=== PATIENT | male | born 1985 | race Caucasian/White ===

== ENCOUNTER 2017-01-02 16:15 | Emergency (ER) | payer OTHER ==
[~2017-01-02] VITALS: Ht 182.9 cm; Wt 109.0 kg
[~2017-01-02 16:15] MED LIST: ALPRAZOLAM0.25 M2 PO; AMERICAINE TP; ANUSOL-HC25 MG RC; ARTIFICIAL TEAR15 M3 OP; ATIVAN0.5 MG PO; ATIVAN1 MG PO; ATIVAN2 M1 PO; BENTYL10 M1 PO; BUPROPION HCL100 MG PO; CIPRO500 MG/5 M PO; COLACE-T100 MG PO; COLACE100 M1 PO; COLACE100 MG PO; COLACE50 MG PO; CYMBALTA60 M1 PO; DIAZEPAM5 M PO; EFFEXOR XR75 M1 PO; FLAGYL500 MG PO; H PO; HYDROCODON-ACE1 EAC7 PO; IBUPROFEN800 MG PO; LEVAQUIN500 MG PO; LIDODERM700 MG TP; LINZESS290 MC1 PO; METOPROLOL SUCC25 M1 PO; MIRALAX17 G2 PO; MIRALAX17 GM PO; MOTRIN600 MG PO; NIFEDIPINE10 M3 PO; NORCO 10/3251 TA1 PO; NORCO 5-325 TA1 EACH PO; NORCO 5/325 TAB1 TAB PO; NORCO 5/3251 TAB PO; NORCO 7.5/3251 TAB PO; NORVASC5 M2 PO; OXYCODON-ACETA1 EAC1 PO; OXYCODONE/APAP PO; PAIN RELIEVING28 GM TP; PERCOCET 5-3251 EACH PO; PERCOCET 5/3251 TAB PO; PERCOCET 7.5-31 EACH PO; PHENERGAN25 MG PO; PRISTIQ ER50 MG PO; PRISTIQ50 MG PO; PROTONIX40 M2 PO; PSYLLIUM PO; ROXICODONE5 M1 PO; SENOKOT-S TABLE1 TAB PO; TRAMADOL HCL50 MG PO; ULTRAM ER100 M1 PO; VALIUM5 M1 PO; WELLBUTRIN SR100 M1 PO; WELLBUTRIN SR200 M2 PO; ZOFRAN4 M1 PO; ZOFRAN4 M2 PO; ZOFRAN4 MG PO; ZOLOFT100 M1 PO; ZOLOFT100 MG PO; ZOLOFT50 MG PO; [UNRECOGNIZED DRUG - OTHER] TP
[2017-01-02] MEDS ORDERED: AMITRIPTYLINE H25 M1 PO (16:31)
[2017-01-02] MEDS ORDERED: EFFEXOR XR150 M1 PO (16:31)
[2017-01-02] MEDS ORDERED: AMBIEN10 M1 PO (16:31)
[2017-01-02] MEDS ORDERED: XANAX1 M1 PO (16:32)
[2017-01-02] MEDS ORDERED: WELLBUTRIN SR100 M2 PO (16:32)
[2017-01-02] MEDS ORDERED: TOPAMAX100 M2 PO (16:32)
[2017-01-02] MEDS ORDERED: NORCO 5-325 TA1 EACH PO (16:35)
[2017-01-02] MEDS ORDERED: IBUPROFEN600 M1 PO (16:38)
[2017-01-02] MEDS ORDERED: ULTRAM50 M1 PO (16:40)
[2017-01-02] MEDS ORDERED: KEFLEX500 M4 PO (16:41)
[2017-01-02 16:43] LABS: BASO % 0.1 % (0-2); EOS % 3.6 % (0-7); EOSINOPHIL ABSOLUTE COUNT 0.2 tho/cmm (0.0-0.7); HCT-HEMATOCRIT 42.1 % (36.0-53.5); HGB-HEMOGLOBIN 14.9 gm/dl (13.5-17.0); IMMATURE GRANULOCYTES ABSOLUTE 0.01 tho/cmm (0-0.03); IMMATURE GRANULOCYTES PERCENT 0.1 % (0-0.3); LYMPH % 43.3 % (20-45); LYMPH ABSOLUTE COUNT 2.9 tho/cmm (0.8-4.5); MCH (MEAN CORPUSCULAR HGB) 29.2 pg (28.0-32.0); MCHC MEAN CORPUSCULAR HGB CONC 35.4 % (32.0-36.0); MCV (MEAN CELL VOLUME) 82.5 fl (82.0-96.0); MEAN PLATELET VOLUME 8.3 cmc (9.4-12.4); MONO % 6.6 % (0-12); MONOCYTE ABSOLUTE COUNT 0.4 tho/cmm (0.0-1.2); NEUTROPHIL ABSOLUTE COUNT 3.1 tho/cmm (1.6-8.0); NEUTROPHIL-AUTOMATED 3.1 tho/cmm (1.6-8.0); NEUTROPHILS % 46.3 % (40-80); PLATELET COUNT 189 tho/cmm (150-450); RED CELL DISTRIBUTION WIDTH 13.7 % (12.4-16.4); WHITE BLOOD COUNT 6.7 tho/cmm (4.0-10.0)
[2017-01-02] MEDS ORDERED: MEDROL4 M2 PO (16:43)
[2017-01-02] MEDS ORDERED: VISTARIL25 M1 PO (16:46)
[2017-01-02 17:03] LABS: ANION GAP 9 mmol/L (0-20); BLOOD UREA NITROGEN 9 mg/dl (6-24); CARBON DIOXIDE-VENOUS 27 mmol/L (22-32); CHLORIDE 106 mmol/l (96-110); CREATININE 1.25 mg/dl (0.60-1.30); GLUCOSE 126 mg/dL (70-110); SODIUM 138 mmol/L (135-145); eGFR VALUE FOR BLACK 88 mL/Min
[2017-01-02 17:06] LABS: POTASSIUM 3.6 mmol/L (3.7-5.1)
== END 2017-01-02 17:30 ==
LOC: EDMED 16:15
PROVIDERS: Emergency Medicine
DX: R07.89 Other chest pain (principal); F41.9 Anxiety disorder, unspecified; I10 Essential (primary) hypertension; Z79.899 Other long term (current) drug therapy
CPT/HCPCS: J2060